=== PATIENT | female | born 1970 | race Caucasian/White ===

== ENCOUNTER → 2016-09-16 | Outpatient (CLI) | payer BC ==
[~2016-09-16] MED LIST: FAMO20TA11 PO; FERR1TAB13 PO; FERR1TAB24 PO; IBUP-1050 PO; LEVO100T PO; LEVO200T PO; LEVOPOW36 PO; SERT-234 PO; ZNTT/150 PO
[2016-09-16 09:26] LABS: BASO % 0.8 %; BASO ABS # 0.09 K/uL (0-0.2); COMPLETE YES; EOS % 3.7 %; HEMATOCRIT 40.7 % (37-47); IG% 0.3 %; LYMPH % 18.8 %; LYMPH ABS # 2.05 K/uL (1.2-3.4); MEAN CELL VOLUME 75.9 fL (80-100); MEAN CORPUSCULAR HEMOGLOBIN 24.8 pg (25-34); MEAN CORPUSCULAR HGB CONC 32.7 g/dl (32-36); MEAN PLATELET VOLUME 11.2 fL (7.4-10.4); NEUT % 69.4 %; PLATELET COUNT 330 K/uL (130-400); RED BLOOD COUNT 5.36 M/uL (4.2-5.4); WHITE BLOOD COUNT 10.91 K/uL (4.8-10.8)
[2016-09-16 09:51] LABS: CHOLESTEROL/HDL RATIO 4.1; FERRITIN 9.4 ng/ml (8.0-388.0); THYROID STIMULATING HORMONE 2.35 uIu/ml (0.300-4.500)
== END | disposition home or self-care (01) ==
LOC: C.LAB1850 08:26
PROVIDERS: ATTEND Internal Medicine Geriatric Medicine
DX: Z00.00 Encounter for general adult medical examination without abnormal findings (principal); D64.9 Anemia, unspecified; E03.9 Hypothyroidism, unspecified

== ENCOUNTER 2017-01-16 08:13 | Emergency (ER) | payer BC ==
[~2017-01-16] VITALS: Ht 172.7 cm; Wt 122.6 kg
[~2017-01-16 08:13] MED LIST changes: -FERR1TAB13 PO; -IBUP-1050 PO; -LEVO100T PO; -LEVO200T PO
[2017-01-16 08:16] VITALS: TEMP 36.8; Ht 172.7 cm; Wt 122.6 kg
[2017-01-16 08:31] VITALS: O2SAT 96
--- NOTE | 2017-01-16 08:32 | EMERGENCY ROOM VISIT NOTE ---
History Report prepared by Oj: Belinda Peo Under the Supervision of: Dr. Sivakumar Musa M.D. First contact with patient: 08:21 Chief Complaint: CARDIAC ASSESSMENT Stated Complaint: CHEST PAINS, COLD SWEATS, NAUSEA, SOB History of Present Illness The patient is a 46 year old female who presents to the Emergency Room with complaints of resolving chest pain that began 5 hours prior to arrival. The patient states that she had an episode of this chest pain late last night and then again this morning waking her up from her sleep. The patient states that the pain has completely resolved now. When she was experiencing chest pain the patient states that she would rate the pain as 6/10 in severity. During the episode of chest pain she did experiencing nausea, diaphoresis and nausea. The patient states that she at first thought the pain was from acid reflux. She has a history of acid reflux and does take daily medication for this. She took TUMS when the pain first began with no relief of her symptoms. The patient notes that she is experiencing neck pain but that she was camping over the weekend and is unsure if the pain is from not sleeping in her bed. The patient notes she has been more stressed lately. She denies hypertension, diabetes, cardiac or pulmonary history, or smoking. Source of History: patient Onset: 5 hours [employer]ICK[employer] Position: chest Symptom Intensity: 6/10 Timing: resolved Associated Symptoms: + diaphoresis, + SOB, + nausea Review of Systems All systems have been listed, reviewed, and are negative other than those previously mentioned. Please see Additional Medical History Sheet. Past Medical & Surgical Medical Problems: (1) Acid reflux Family History Cancer Diabetes mellitus Heart disease Hypertension Social History Smoking Status: Former Smoker Smokeless Tobacco Use: No Marital Status: Housing Status: lives with family Occupation Status: employed Current/Historical Medications Scheduled Ferrous Sulfate (Kp Ferrous Sulfate), 325 MG PO DAILY Levothyroxine Sodium (Synthroid), 200 MCG PO DAILY Ranitidine (Zantac), 150 MG PO DAILY Sertraline (Zoloft), 100 MG PO DAILY Sertraline (Zoloft), 150 MG PO UD Scheduled PRN Ibuprofen (Advil), 600 MG PO UD PRN for Pain Allergies Coded Allergies: No Known Allergies (Verified , 01/16/17) Physical Exam Vital Signs Date Time Temp Pulse Resp B/P (MAP) Pulse Ox O2 Delivery O2 Flow Rate FiO2 01/16/17 10:45 73 18 127/87 97 01/16/17 09:32 72 16 147/113 97 Room Air 01/16/17 08:31 96 Room Air 01/16/17 08:29 98 Room Air 01/16/17 08:28 77 01/16/17 08:16 36.8 79 18 191/109 98 Room Air Physical Exam GENERAL: Patient awake, alert, oriented x 3. Patient follows commands. Patient does not appear toxic. Patient is adequately hydrated and well- nourished. SKIN: No erythema, pallor, cyanosis or rash HEENT: Normal head, pupils equal, reactive to light and accommodation. Oral cavity and posterior pharynx appear normal. Neck: Without adenopathy, no neck vein distention. LUNGS: Clear to auscultation. No wheezes, no rales, no rhonchi. HEART: No murmurs. No gallops. No rubs ABDOMEN: Obese. No masses, no rebound, no hepatomegaly or splenomegaly. EXTREMITIES: No signs of trauma. No pedal or pretibial edema. No calf or thigh tenderness. NEUROLOGIC: Cranial nerves II-XII within normal limits. No gross motor sensory function deficits. Medical Decision & Procedures ER Provider Diagnostic Interpretation: X ray results are stated below per my interpretation and the radiologist's interpretation. CHEST 2 VIEWS ROUTINE CLINICAL HISTORY: CHEST PAIN dyspnea COMPARISON STUDY: No previous studies for comparison. FINDINGS: The bones soft tissues and hemidiaphragms are normal. The cardiomediastinal silhouette is normal. The lungs are clear. The pulmonary vasculature is normal. IMPRESSION: Negative chest. Electronically signed by: Chun Borrero M.D. 01/16/2017 8:53 AM Dictated Date/Time: 01/16/2017 8:53 AM Laboratory Results 01/16/17 08:30 01/16/17 08:30 Test 01/16/17 08:30 01/16/17 10:09 Red Blood Count 5.56 M/uL (4.2-5.4) Mean Corpuscular Volume 80.6 fL (80-100) Mean Corpuscular Hemoglobin 26.1 pg (25-34) Mean Corpuscular Hemoglobin Concent 32.4 g/dl (32-36) RDW Standard Deviation 44.0 fL (36.4-46.3) RDW Coefficient of Variation 14.9 % (11.5-14.5) Mean Platelet Volume 10.4 fL (7.4-10.4) Anion Gap 8.0 mmol/L (3-11) Est Creatinine Clear Calc Drug Dose 101.0 ml/min Estimated GFR () 82.2 Estimated GFR (Non- 70.9 BUN/Creatinine Ratio 12.7 (10-20) Calcium Level 10.0 mg/dl (8.5-10.1) Bedside Troponin I < 0.030 ng/ml (0-0.045) Laboratory results as stated above per my review. ECG Indication: chest pain Rate (beats per minute): 68 Rhythm: normal sinus Findings: no acute ischemic change, no ectopy ED Course 08: Past medical records reviewed. The patient was evaluated in room B2. A complete history and physical examination was performed. 1030: I reevaluated the patient. She is no having no chest pain or shortness of breath. 1036: Upon reevaluation, the patient appeared to have improvement of her symptoms. I discussed today's findings with her. She verbalized agreement of the treatment plan. She was discharged home. Medical Decision Nurses notes reviewed. Medical history sheet reviewed. Differential diagnosis includes but is not limited to: myocardial infarction, chest wall pain, pericarditis, myocarditis, aortic emergencies, pulmonary embolism, congestive heart failure, GI causes, and other significant cardiopulmonary disorders. Medication Reconciliation: I attest that I have personally reviewed the patient' s current medication list. Blood Pressure Screening: Patient was found to have an elevated blood pressure and was referred to their primary doctor for recheck and further treatment. Multiple labs, EKG and imaging were obtained. Please see above. The patient's white count is minimally elevated. The patient has no reason or evidence of a bacterial infection. 2 sets of troponins were not elevated. Chest x-ray reveals no infiltrates. I do not think she has a PE or aortic dissection/ aneurysm. The patient most likely has a GI cause for her symptoms. The patient is currently taking Zantac once a day. We will increase that to twice a day. She is to call her primary physician Tuesday morning for follow-up. Her blood pressure was also elevated and that will require recheck. I am not placing her on an antihypertensive at this time. Impression Primary Impression: Precordial chest pain Scribe Attestation The scribe's documentation has been prepared under my direction and personally reviewed by me in its entirety. I confirm that the note above accurately reflects all work, treatment, procedures, and medical decision making performed by me. Departure Information Dispostion Home / Self-Care Referrals Sreekanth Lynn M.D. (PCP) Forms IMPORTANT VISIT INFORMATION Patient Instructions ED Chest Pain Atypical Unkn Cause, My [facility] Additional Instructions Increase ranitidine/Zantac to 75 mg twice a day. Call Dr. Lynn's office Tuesday morning for follow-up appointment for your chest pain and blood pressure. Return here sooner if you develop any more chest pain.
[2017-01-16 08:41] LABS: HEMATOCRIT 44.8 % (37-47); MEAN CELL VOLUME 80.6 fL (80-100); MEAN CORPUSCULAR HEMOGLOBIN 26.1 pg (25-34); MEAN CORPUSCULAR HGB CONC 32.4 g/dl (32-36); MEAN PLATELET VOLUME 10.4 fL (7.4-10.4); PLATELET COUNT 312 K/uL (130-400); RED BLOOD COUNT 5.56 M/uL (4.2-5.4)
--- NOTE | 2017-01-16 08:55 | DIAGNOSTIC IMAGING REPORT ---
CHEST 2 VIEWS ROUTINE CLINICAL HISTORY: CHEST PAIN dyspnea COMPARISON STUDY: No previous studies for comparison. FINDINGS: The bones soft tissues and hemidiaphragms are normal. The cardiomediastinal silhouette is normal. The lungs are clear. The pulmonary vasculature is normal. IMPRESSION: Negative chest. Electronically signed by: Chun Borrero M.D. 01/16/2017 8:53 AM Dictated Date/Time: 01/16/2017 8:53 AM
[2017-01-16 09:00] LABS: BUN/CREATININE RATIO 12.7 (10-20); CREATININE 0.96 mg/dl (0.60-1.20); POTASSIUM 4.1 mmol/L (3.5-5.1)
[2017-01-16] MEDS ORDERED: IBUP-1050 PO (09:00)
[2017-01-16] MEDS ORDERED: LEVO100T PO (09:00)
[2017-01-16] MEDS ORDERED: LEVO200T PO (09:00)
[2017-01-16] MEDS ORDERED: FERR1TAB13 PO (09:01)
[2017-01-16 10:45] VITALS: BP 127/87; PULSE 73; O2SAT 97
== END 2017-01-16 10:46 | disposition home or self-care (01) ==
LOC: C.EDB 08:14
DX: R07.1 Chest pain on breathing (principal); K21.9 Gastro-esophageal reflux disease without esophagitis; Z87.891 Personal history of nicotine dependence; Z79.899 Other long term (current) drug therapy

== ENCOUNTER → 2017-01-21 | Outpatient (CLI) | payer BC ==
[~2017-01-21] MED LIST changes: +FERR1TAB13 PO; -FERR1TAB24 PO; +IBUP-1050 PO; +LEVO200T PO; -LEVOPOW36 PO
[2017-01-21 17:15] LABS: BASO % 0.5 %; BASO ABS # 0.07 K/uL (0-0.2); COMPLETE YES; EOS % 6.2 %; HEMATOCRIT 42.1 % (37-47); IG% 0.4 %; LYMPH % 19.9 %; LYMPH ABS # 2.84 K/uL (1.2-3.4); MEAN CELL VOLUME 81.7 fL (80-100); MEAN CORPUSCULAR HEMOGLOBIN 26.6 pg (25-34); MEAN CORPUSCULAR HGB CONC 32.5 g/dl (32-36); MEAN PLATELET VOLUME 11.2 fL (7.4-10.4); MONO % 7.5 %; NEUT % 65.5 %; PLATELET COUNT 322 K/uL (130-400); RED BLOOD COUNT 5.15 M/uL (4.2-5.4); WHITE BLOOD COUNT 14.24 K/uL (4.8-10.8)
== END | disposition home or self-care (01) ==
LOC: C.LABBC 13:34
PROVIDERS: ATTEND Physician Assistant Medical
DX: D64.9 Anemia, unspecified (principal); D72.829 Elevated white blood cell count, unspecified

== ENCOUNTER → 2017-01-26 | Outpatient (CLI) | payer BC ==
--- NOTE | 2017-01-26 09:12 | DIAGNOSTIC IMAGING REPORT ---
CHEST 2 VIEWS ROUTINE HISTORY: 46-year-old female presents with acute chest pain and shortness of breath. Leukocytosis. COMPARISON: Chest radiograph 01/16/2017. TECHNIQUE: Frontal and lateral views of the chest. FINDINGS: Cardiomediastinal and hilar silhouettes are within normal limits. There is no pneumothorax, pleural effusion or focal airspace consolidation. The bones are grossly intact. Metallic anchors are present within the right humeral head from prior rotator cuff repair. IMPRESSION: No acute cardiopulmonary process. Electronically signed by: Selwyn Isaac 01/26/2017 9:11 AM Dictated Date/Time: 01/26/2017 9:09 AM
[2017-01-26 10:54] LABS: BASO % 0.6 %; BASO ABS # 0.07 K/uL (0-0.2); COMPLETE YES; EOS % 6.9 %; HEMATOCRIT 42.8 % (37-47); IG% 0.4 %; LYMPH ABS # 1.94 K/uL (1.2-3.4); MEAN CELL VOLUME 81.8 fL (80-100); MEAN CORPUSCULAR HEMOGLOBIN 26.8 pg (25-34); MEAN CORPUSCULAR HGB CONC 32.7 g/dl (32-36); MEAN PLATELET VOLUME 11.2 fL (7.4-10.4); MONO % 7.3 %; NEUT % 67.8 %; PLATELET COUNT 296 K/uL (130-400); RED BLOOD COUNT 5.23 M/uL (4.2-5.4); WHITE BLOOD COUNT 11.38 K/uL (4.8-10.8)
[2017-01-26 10:58] LABS: URINE APPEARANCE CLEAR (CLEAR); URINE BILIRUBIN NEG (NEG); URINE COLOR YELLOW; URINE EPITHELIAL CELL AUTO >30 /lpf (0-5); URINE NITRITE NEG (NEG); URINE SPECIFIC GRAVITY 1.018 (1.000-1.030); UROBILINOGEN NEG (NEG)
[2017-01-26 11:00] LABS: ALT/SGPT 34 U/L (12-78); BLOOD UREA NITROGEN 10 mg/dl (7-18); BUN/CREATININE RATIO 10.4 (10-20); CARBON DIOXIDE 25 mmol/L (21-32); CHLORIDE 107 mmol/L (98-107); CREATININE 0.97 mg/dl (0.60-1.20); GLUCOSE 91 mg/dl (70-99); POTASSIUM 3.9 mmol/L (3.5-5.1); SODIUM 139 mmol/L (136-145)
[2017-01-26 11:01] LABS: MANUAL MICROSCOPIC REQUIRED? NO; REVIEW REQ? NO
[2017-01-26 11:03] LABS: ALKALINE PHOSPHATASE 73 U/L (45-117); AST/SGOT 19 U/L (15-37)
[2017-01-26 11:29] LABS: LYME DISEASE AB IGG NEG (NEG)
[2017-01-26 11:48] LABS: LYME DISEASE AB IGM EQUIVOCAL (NEG)
[2017-01-28 07:06] LABS: 18KDIGG BAND NONREACTIVE (NONREACTIVE); 23KDIGG BAND NONREACTIVE (NONREACTIVE); 23KDIGM BAND REACTIVE (NONREACTIVE); 28KDIGG BAND NONREACTIVE (NONREACTIVE); 30KDIGG BAND NONREACTIVE (NONREACTIVE); 39KDIGG BAND NONREACTIVE (NONREACTIVE); 39KDIGM BAND NONREACTIVE (NONREACTIVE); 41KDIGG BAND NONREACTIVE (NONREACTIVE); 41KDIGM BAND REACTIVE (NONREACTIVE); 45KDIGG BAND NONREACTIVE (NONREACTIVE); 58KDIGG BAND NONREACTIVE (NONREACTIVE); 66KDIGG BAND NONREACTIVE (NONREACTIVE); 93KDIGG BAND NONREACTIVE (NONREACTIVE)
== END | disposition home or self-care (01) ==
LOC: C.RADBC 08:33
PROVIDERS: ATTEND Physician Assistant Medical
DX: R07.9 Chest pain, unspecified (principal); D72.829 Elevated white blood cell count, unspecified

== ENCOUNTER → 2017-01-28 | Outpatient (CLI) | payer BC | END | disposition home or self-care (01) | LOC: C.LABBC 12:26 | PROVIDERS: ATTEND Physician Assistant Medical | DX: R78.81 Bacteremia (principal); A69.20 Lyme disease, unspecified ==

== ENCOUNTER 2017-02-02 12:42 | Emergency (ER) | payer BC ==
[~2017-02-02] VITALS: Ht 172.7 cm; Wt 124.4 kg
[~2017-02-02 12:42] MED LIST changes: -FAMO20TA11 PO
[2017-02-02 12:47] VITALS: TEMP 36.5; Ht 172.7 cm; Wt 124.4 kg
[2017-02-02] MEDS ORDERED: SODIUM CHLORIDE 0.9% 1000ML 500 ML IV STA (13:08)
[2017-02-02] MEDS ORDERED: FAMO20TA11 PO (13:10)
[2017-02-02 14:12] LABS: BASO % 0.3 %; BASO ABS # 0.04 K/uL (0-0.2); COMPLETE YES; EOS % 1.5 %; HEMATOCRIT 42.8 % (37-47); IG% 0.4 %; LYMPH % 8.4 %; LYMPH ABS # 1.17 K/uL (1.2-3.4); MEAN CELL VOLUME 80.8 fL (80-100); MEAN CORPUSCULAR HEMOGLOBIN 26.6 pg (25-34); MEAN CORPUSCULAR HGB CONC 32.9 g/dl (32-36); MEAN PLATELET VOLUME 10.8 fL (7.4-10.4); MONO % 4.5 %; NEUT % 84.9 %; PLATELET COUNT 268 K/uL (130-400); WHITE BLOOD COUNT 13.94 K/uL (4.8-10.8)
[2017-02-02 14:38] LABS: ALT/SGPT 34 U/L (12-78); BLOOD UREA NITROGEN 13 mg/dl (7-18); BUN/CREATININE RATIO 14.1 (10-20); CALCIUM 8.9 mg/dl (8.5-10.1); CARBON DIOXIDE 25 mmol/L (21-32); CHLORIDE 104 mmol/L (98-107); CREATININE 0.95 mg/dl (0.60-1.20); GLUCOSE 132 mg/dl (70-99); POTASSIUM 3.6 mmol/L (3.5-5.1); SODIUM 137 mmol/L (136-145)
[2017-02-02 14:48] LABS: ALKALINE PHOSPHATASE 80 U/L (45-117); AST/SGOT 18 U/L (15-37)
[2017-02-02 14:52] LABS: URINE APPEARANCE CLEAR (CLEAR); URINE BILIRUBIN NEG (NEG); URINE COLOR YELLOW; URINE EPITHELIAL CELL AUTO 20-30 /lpf (0-5); URINE NITRITE NEG (NEG); URINE SPECIFIC GRAVITY 1.019 (1.000-1.030); UROBILINOGEN NEG (NEG)
--- NOTE | 2017-02-02 14:53 | EMERGENCY ROOM VISIT NOTE ---
History Report prepared by Oj: Ernie Richards Under the Supervision of: Dr. Todd Sullivan M.D. First contact with patient: 13:04 Chief Complaint: SYNCOPE (NEAR SYNCOPE) Stated Complaint: CLAMY COLD SWEATS Nursing Triage Summary: triage note: pt reports she tested + for lymes disease. pt reports earlier today she felt sweaty and weak which lasted for approx 1 hour. pt denies any loc. History of Present Illness The patient is a 46 year old female who presents to the Emergency Room with complaints of resolved lightheadedness occurring about an hour and a half ago. The patient was standing up at work where she started feeling hot and clammy, diaphoretic, lightheaded, and nauseated. She denies any vomiting. Her symptoms lasted about 1 hours and resolved about half an hour ago. She felt much better when she got to the car with air conditioning. As per , the patient's workplace building was very hot today. She ate food and drank fluids as normal today. The patient has been at baseline over the past few days. The patient reports hot flashes occurring intermittently. She was diagnosed with Lyme's disease by her PCP last week. The patient has been prescribed Doxycycline for 3 weeks by her PCP. She has been taking her thyroid medication for the past 20 years but did not have any recent changes in doses. She does not have a history of hypertension. She denies loss of consciousness, cough, cold, congestion, chest pain, shortness of breath, urinary symptoms, diarrhea, or any other complaints. Source of History: patient Onset: about an hour and a half ago Position: other (global) Quality: other (lightheadedness) Timing: resolved Associated Symptoms: + diaphoresis, + nausea, No LOC, No cough, No chest pain, No SOB, No vomiting, No diarrhea, No urinary symptoms Review of Systems See HPI for pertinent positives & negatives. A total of 10 systems reviewed and were otherwise negative. Past Medical & Surgical Medical Problems: (1) Acid reflux Family History Cancer Diabetes mellitus Heart disease Hypertension Social History Smoking Status: Never Smoker Marital Status: Housing Status: lives with family Occupation Status: employed Current/Historical Medications Scheduled Famotidine (Pepcid), 40 MG PO DAILY Ferrous Sulfate (Kp Ferrous Sulfate), 325 MG PO DAILY Levothyroxine Sodium (Synthroid), 200 MCG PO DAILY Sertraline (Zoloft), 100 MG PO DAILY Sertraline (Zoloft), 150 MG PO UD Scheduled PRN Ibuprofen (Advil), 600 MG PO UD PRN for Pain Allergies Coded Allergies: No Known Allergies (Verified , 02/02/17) Physical Exam Vital Signs Date Time Temp Pulse Resp B/P (MAP) Pulse Ox O2 Delivery O2 Flow Rate FiO2 02/02/17 15:30 75 15 132/77 100 02/02/17 14:16 72 124/78 Room Air 02/02/17 14:01 73 02/02/17 12:56 70 142/88 72 152/111 75 154/109 02/02/17 12:47 36.5 69 18 141/101 100 Room Air Physical Exam GENERAL: Patient is in no acute distress. HEENT: No acute trauma, normocephalic atraumatic, mucous membranes moist, no nasal congestion, no scleral icterus. NECK: No stridor, no adenopathy, no meningismus, trachea is midline. LUNGS: Clear to auscultation bilaterally, no wheeze, no rhonchi, breath sounds equal. HEART: Without murmurs gallops or rubs, regular rate and rhythm. ABDOMEN: Soft, nontender, bowel sounds positive, no hernias, no peritonitis. EXTREMITIES: No cyanosis or edema, full range of motion of all the joints without pain or difficulty, no signs for acute trauma. NEUROLOGIC: Oriented x 3, no acute motor or sensory deficits, no focal weakness. SKIN: No rash, no jaundice, no diaphoresis. Medical Decision & Procedures ER Provider Diagnostic Interpretation: The patient's orthostatic vital signs were negative. Laboratory Results 02/02/17 13:40 Red Blood Count 5.30, Mean Corpuscular Volume 80.8, Mean Corpuscular Hemoglobin 26.6, Mean Corpuscular Hemoglobin Concent 32.9, Mean Platelet Volume 10.8, Neutrophils (%) (Auto) 84.9, Lymphocytes (%) (Auto) 8.4, Monocytes (%) (Auto) 4.5, Eosinophils (%) (Auto) 1.5, Basophils (%) (Auto) 0.3, Neutrophils # (Auto) 11.83, Lymphocytes # (Auto) 1.17, Monocytes # (Auto) 0.63, Eosinophils # (Auto) 0.21, Basophils # (Auto) 0.04 02/02/17 13:40 Test 02/02/17 13:40 White Blood Count 13.94 K/uL (4.8-10.8) Red Blood Count 5.30 M/uL (4.2-5.4) Hemoglobin 14.1 g/dL (12.0-16.0) Hematocrit 42.8 % (37-47) Mean Corpuscular Volume 80.8 fL (80-100) Mean Corpuscular Hemoglobin 26.6 pg (25-34) Mean Corpuscular Hemoglobin Concent 32.9 g/dl (32-36) Platelet Count 268 K/uL (130-400) Mean Platelet Volume 10.8 fL (7.4-10.4) Neutrophils (%) (Auto) 84.9 % Lymphocytes (%) (Auto) 8.4 % Monocytes (%) (Auto) 4.5 % Eosinophils (%) (Auto) 1.5 % Basophils (%) (Auto) 0.3 % Neutrophils # (Auto) 11.83 K/uL (1.4-6.5) Lymphocytes # (Auto) 1.17 K/uL (1.2-3.4) Monocytes # (Auto) 0.63 K/uL (0.11-0.59) Eosinophils # (Auto) 0.21 K/uL (0-0.5) Basophils # (Auto) 0.04 K/uL (0-0.2) RDW Standard Deviation 42.5 fL (36.4-46.3) RDW Coefficient of Variation 14.5 % (11.5-14.5) Immature Granulocyte % (Auto) 0.4 % Immature Granulocyte # (Auto) 0.06 K/uL (0.00-0.02) Urine Color YELLOW Urine Appearance CLEAR (CLEAR) Urine pH 5.0 (4.5-7.5) Urine Specific [place] 1.019 (1.000-1.030) Urine Protein NEG (NEG) Urine Glucose (UA) NEG (NEG) Urine Ketones NEG (NEG) Urine Occult Blood TRACE (NEG) Urine Nitrite NEG (NEG) Urine Bilirubin NEG (NEG) Urine Urobilinogen NEG (NEG) Urine Leukocyte Esterase NEG (NEG) Urine WBC (Auto) 0 /hpf (0-5) Urine RBC (Auto) 0-4 /hpf (0-4) Urine Hyaline Casts (Auto) 0 /lpf (0-5) Urine Epithelial Cells (Auto) 20-30 /lpf (0-5) Urine Bacteria (Auto) NEG (NEG) Anion Gap 8.0 mmol/L (3-11) Est Creatinine Clear Calc Drug Dose 102.9 ml/min Estimated GFR () 83.3 Estimated GFR (Non- 71.8 BUN/Creatinine Ratio 14.1 (10-20) Calcium Level 8.9 mg/dl (8.5-10.1) Total Bilirubin 0.2 mg/dl (0.2-1) Aspartate Amino Transf (AST/SGOT) 18 U/L (15-37) Alanine Aminotransferase (ALT/SGPT) 34 U/L (12-78) Alkaline Phosphatase 80 U/L (45-117) Troponin I < 0.015 ng/ml (0-0.045) Total Protein 8.1 gm/dl (6.4-8.2) Albumin 4.0 gm/dl (3.4-5.0) Globulin 4.1 gm/dl (2.5-4.0) Albumin/Globulin Ratio 1.0 (0.9-2) Thyroid Stimulating Hormone (TSH) 3.530 uIu/ml (0.300-4.500) Free Thyroxine 1.28 ng/dl (0.80-1.60) Laboratory results reviewed by me. Medications Administered Medications (Trade) Dose Ordered Sig/Cleo Route Start Time Stop Time Status Last Admin Dose Admin Sodium Chloride 500 ml @ 999 mls/hr Q31M STAT IV 02/02/17 13:08 02/02/17 13:38 DC 02/02/17 13:55 999 MLS/HR ECG Indication: syncope (near) Rate (beats per minute): 72 Rhythm: normal sinus Findings: no acute ischemic change, no ectopy, other (LVH) ED Course 1304: The patient was evaluated in room C05. A complete history and physical exam was performed. 1308: Sodium Chloride 500 ml @ 999 ml/hr IV 1514: Reevaluated the patient. Discussed results and discharge instructions: She verbalized understanding and agreement. The patient is ready for discharge. Medical Decision Differential diagnosis includes but is not limited to dysrhythmia, anemia, electrolyte imbalance, hormonal change, lyme disease, bacteremia, DE, UTI. There is a mild leukocytosis which could be consistent with infection or with the stress of her situation. No anemia. No significant electrolyte abnormality , kidney failure or hepatitis. Urinalysis does not show infection. EKG shows a normal sinus rhythm with LVH. Cardiac enzyme testing times one is not consistent with acute cardiac injury. Orthostatic vital signs were negative. 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 She is doing well, she has been asymptomatic. I did order blood cultures, the results are pending of course. The cultures were done because of the questionable positive blood culture versus contaminant from a few days ago. The patient is being treated with doxycycline for Lyme disease. Her presentation today could have been from the Lyme disease itself. She has done well and I do think can be discharged to continue the doxycycline. If worsening , she can return. We will call with any positive blood culture results. Impression Primary Impression: Near syncope Additional Impressions: Diaphoresis Lyme disease Scribe Attestation The scribe's documentation has been prepared under my direction and personally reviewed by me in its entirety. I confirm that the note above accurately reflects all work, treatment, procedures, and medical decision making performed by me. Departure Information Dispostion Home / Self-Care Referrals Sreekanth Lynn M.D. (PCP) Forms HOME CARE DOCUMENTATION FORM, IMPORTANT VISIT INFORMATION Patient Instructions My [facility] Additional Instructions stay well hydrated continue the doxycycline see your doctor for a recheck this week return for fever or worsening symptoms we will call with any positive blood cultures Problem Qualifiers
[2017-02-02 15:05] LABS: MANUAL MICROSCOPIC REQUIRED? NO; REVIEW REQ? NO
[2017-02-02 15:30] VITALS: BP 132/77; PULSE 75; O2SAT 100
== END 2017-02-02 15:30 | disposition home or self-care (01) ==
LOC: C.EDB 12:43 → C.EDC 15:30
DX: R55 Syncope and collapse (principal); Z82.49 Family history of ischemic heart disease and other diseases of the circulatory system; Z79.899 Other long term (current) drug therapy; R23.1 Pallor; R61 Generalized hyperhidrosis; A69.20 Lyme disease, unspecified

== ENCOUNTER → 2017-07-08 | Outpatient (CLI) | payer BC ==
[~2017-07-08] MED LIST changes: +FAMO20TA11 PO; -ZNTT/150 PO
--- NOTE | 2017-07-11 07:59 | MAMMOGRAPHY REPORT ---
BILATERAL DIGITAL SCREENING MAMMOGRAM TOMOSYNTHESIS WITH CAD: 07/08/2017 CLINICAL HISTORY: Routine screening. Patient has no complaints. TECHNIQUE: Breast tomosynthesis in addition to standard 2D mammography was performed. Current study was also evaluated with a Computer Aided Detection (CAD) system. COMPARISON: Comparison is made to exams dated: 11/08/2014 mammogram, 11/07/2013 mammogram, 11/06/2012 m ammogram, 06/02/2010 mammogram - [facility], and 11/12/2008. BREAST COMPOSITION: The tissue of both breasts is almost entirely fatty. FINDINGS: No suspicious masses, calcifications, or areas of architectural distortion are noted in ei ther breast. There has been no significant interval change compared to prior exams. IMPRESSION: ACR BI-RADS CATEGORY 1: NEGATIVE There is no mammographic evidence of malignancy. A 1 year screening mammogram is recommended. The pa tient will receive written notification of the results. Approximately 10% of breast cancers are not detected with mammography. A negative mammographic report should not delay biopsy if a clinically suggestive mass is present. Gissel Mckenzie M.D. ah/:07/08/2017 15:27:47 Mail Weigher: Susanna JOEL(R)(M), [facility] letter sent: Normal 1/2 BI-RADS Code: ACR BI-RADS Category 1: Negative
== END | disposition home or self-care (01) ==
LOC: C.MAMM 14:11
PROVIDERS: ATTEND Internal Medicine
DX: Z12.31 Encounter for screening mammogram for malignant neoplasm of breast (principal)

== ENCOUNTER → 2017-08-26 | Outpatient (CLI) | payer OTHER ==
--- NOTE | 2017-08-26 08:49 | DIAGNOSTIC IMAGING REPORT ---
GI SERIES W/AIR ROUTINE CLINICAL HISTORY: K21.9 Acid reflux COMPARISON STUDY: FLUOROSCOPY TIME: 2.5 minutes. NUMBER OF FLUOROSCOPIC IMAGES: 23 FINDINGS: The patient swallowed effervescent granules and barium without difficulty. No esophageal masses or ulcerations are visualized. No gastric masses or ulcerations are visualized. The duodenal bulb appeared normal. The ligament of Treitz is located in the normal anatomical position. IMPRESSION: Normal study Electronically signed by: Yoshi Wallace M.D. 08/26/2017 8:48 AM Dictated Date/Time: 08/26/2017 8:46 AM
== END | disposition home or self-care (01) ==
LOC: C.RAD 08:17
PROVIDERS: ATTEND Physician Assistant Medical
DX: K21.9 Gastro-esophageal reflux disease without esophagitis (principal)

== ENCOUNTER → 2017-11-25 | Outpatient (CLI) | payer OTHER ==
[2017-11-25 09:35] LABS: HEMATOCRIT 36.1 % (37-47); MEAN CELL VOLUME 67.2 fL (80-100); MEAN CORPUSCULAR HEMOGLOBIN 20.5 pg (25-34); MEAN CORPUSCULAR HGB CONC 30.5 g/dl (32-36); MEAN PLATELET VOLUME 10.1 fL (7.4-10.4); PLATELET COUNT 343 K/uL (130-400); RED CELL DISTRIBUTION WIDTH SD 41.2 fL (36.4-46.3); WHITE BLOOD COUNT 9.54 K/uL (4.8-10.8)
[2017-11-25 09:48] LABS: ALT/SGPT 35 U/L (12-78); AST/SGOT 18 U/L (15-37); BLOOD UREA NITROGEN 14 mg/dl (7-18); CARBON DIOXIDE 25 mmol/L (21-32); CREATININE 0.88 mg/dl (0.60-1.20); GLUCOSE 105 mg/dl (70-99); POTASSIUM 4.1 mmol/L (3.5-5.1); SODIUM 137 mmol/L (136-145)
[2017-11-25 09:58] LABS: ALKALINE PHOSPHATASE 78 U/L (45-117); TOTAL PROTEIN 7.9 gm/dl (6.4-8.2)
== END | disposition home or self-care (01) ==
LOC: C.LAB1850 08:23
PROVIDERS: ATTEND Physician Assistant Medical
DX: E03.9 Hypothyroidism, unspecified (principal); D64.9 Anemia, unspecified; Z00.00 Encounter for general adult medical examination without abnormal findings

== ENCOUNTER 2020-05-23 05:46 | Observation (INO) ==
--- NOTE | 2020-05-02 14:21 | PAT Medication Instructions ---
Medication Instructions Date of Service May 02, 2020 Home Medications Medication Instructions Recorded pantoprazole 40 mg tablet,delayed 40 mg PO QPM #90 tab 02/07/20 release levothyroxine 200 mcg PO QAM pantoprazole 40 mg tablet,delayed release 40 mg PO QPM sertraline See Rx Instructions .ROUTE .COMPLEX Continue as directed levothyroxine 200 mcg PO QAM pantoprazole 40 mg tablet,delayed release 40 mg PO QPM sertraline See Rx Instructions .ROUTE .COMPLEX Other Notes If you have any questions please call us at [phone] or [phone] or [phone] or [phone]
--- NOTE | 2020-05-07 09:07 | Anesthesiology Consultation ---
Date of Service May 07, 2020 Assessment & Plan (1) Encounter for pre-operative examination: - Per assessment on 05/07: Travel screen negative (did attend a wedding 04/19 with 75 people/no masks. PAT visit was rescheduled due to proximity of wedding to [facility]). DOS 1+ month after wedding event. Has had no further large gatherings and no travel planned prior to surgery. No known COVID-19 positive contacts or current COVID-19 related symptoms. Surgeon arranging preop COVID testing (scheduled 05/19). Awaiting results. - Check test AM DOS Chart Review Chart Review: Acceptable Risk for Surgery and Patient seen in Pre Admission Testing Teaching & Discussion Pre-Anesthesia Teaching/Discussion Notes: Instructed NPO after midnight before surgery,except medications with 15 cc of water. Medication instructions provided according to the PAT guidelines. History Surgery Operation Date: 05/23/20 07:30 Proposed Procedures p Robotic Total Laparoscopic Hysterectomy - Cookie Patterson MD Height/Weight Height: 5 ft 8 in Weight: 126.7 kg Allergies Allergy/AdvReac Type Severity Reaction Status Date / Time No Known Allergies Allergy Verified 04/30/20 10:43 Medications Home Medications Medication Instructions Recorded Confirmed Last Taken levothyroxine 200 mcg PO QAM 01/16/20 04/30/20 01/22/20 18:00 pantoprazole 40 mg tablet,delayed 40 mg PO QPM #90 tab 02/07/20 04/30/20 Unknown release sertraline See Rx Instructions .ROUTE .COMPLEX 04/24/20 04/30/20 Unknown Past Medical History Medical History Anxiety GERD (gastroesophageal reflux disease) History of colon polyps Hypothyroidism Iron deficiency anemia s/p iron infusions Menorrhagia Mild sleep apnea does not tolerate CPAP Morbid obesity Osteoarthritis Exercise / Class Metabolic Activity III < 4 Walking/Shop/Light housework Past Family History Family History Father Diabetes Heart disease Myocardial infarction Stroke syndrome Heart transplant recipient Hypertension Stroke Mother Depression DVT of leg (deep venous thrombosis) Hypertension Grandmother (Maternal) Diabetes Other No family history of adverse response to anesthesia Denies family history of Ovarian cancer Prostate cancer Breast cancer Colorectal cancer Past Surgical History Surgical History H/O colonoscopy with polypectomy (10/2013) History of esophagogastroduodenoscopy (EGD) (10/2014) History of shoulder surgery Right History of tooth extraction wisdom teeth, impacted tooth Past Anesthesia History No Hx of Anesthesia Complications (except PONV) and No Family Hx of Anesthesia Complications History of PONV History of PONV (with shoulder surgery ()) and Hx of Motion Sickness (occasional) Social History Smoking Status: Former smoker Do You Dip or Chew Tobacco: No Smoking End Date: Quit 15 years ago Hx Alcohol Use: Yes Alcohol type: beer alcohol intake frequency: a few times a week Hx Substance Use: No substance use type: does not use Review of Systems Patient denies chest pain, shortness of breath, cough, wheezing, palpitations. Physical Exam Vital Signs VITALS BP 170/81 (repeat BP 138/86) P 77 TEMP 97.5 SP02 96%RA RESP 16 PHYSICAL Full neck and c-spine range of motion. Full TMJ range of motion. TMD 4 finger breaths Mallampati Score 2 Dentition: upper right front tooth repaired, teeth intact Lungs: clear throughout to auscultation Cardiac: regular rate and rhythm, no murmurs noted Spine: normal Extremities: no edema Testing Laboratory Results 05/07/20 09:39 05/07/20 09:39 Blood Type A Positive 05/07/20 09:39 Antibody Screen NEGATIVE 05/07/20 09:39 Electrocardiogram Date: 05/07/20 Findings: + NSR @ (70)
[2020-05-07 09:55] LABS: Basophils # (auto) 0.06 K/uL (0-0.2); Basophils % (auto) 0.7 %; Eosinophils # (auto) 0.47 K/uL (0-0.5); Eosinophils % (auto) 5.8 %; Hematocrit (blood only) 43.3 % (37-47); Hemoglobin 13.7 g/dL (12.0-16.0); Immature Granulocytes # (auto) 0.02 K/uL (0.00-0.02); Immature Granulocytes % (auto) 0.2 %; Lymphocytes # (auto) 1.42 K/uL (1.2-3.4); Lymphocytes % (auto) 17.6 %; Mean Corpuscular Hemoglobin 25.1 pg (25-34); Mean Corpuscular Hgb Conc 31.6 g/dL (32-36); Mean Corpuscular Volume 79.3 fL (80-100); Mean Platelet Volume 11.7 fL (7.4-10.4); Monocytes # (auto) 0.47 K/uL (0.11-0.59); Monocytes % (auto) 5.8 %; Neutrophils # (auto) 5.62 K/uL (1.4-6.5); Neutrophils % (auto) 69.9 %; Platelet Count 277 K/uL (130-400); RDW Coefficient of Variation 15.2 % (11.5-14.5); RDW Standard Deviation 44.4 fL (36.4-46.3); Red Blood Count 5.46 M/uL (4.2-5.4); White Blood Count 8.06 K/uL (4.8-10.8)
[2020-05-07 10:44] LABS: BUN Creatinine Ratio 18.1 (10-20); Calcium 9.2 mg/dl (8.5-10.1); Creatinine Clr Calc Pharmacy 102.8 ml/min; Est GFR (African American) 84.1; Est GFR (Non-African American) 72.6; Potassium 4.4 mmol/L (3.5-5.1)
--- NOTE | 2020-05-07 13:43 | Electrocardiogram Report ---
Test Reason : Blood Pressure : / mmHG Vent. Rate : 070 BPM Atrial Rate : 070 BPM P-R Int : 168 ms QRS Dur : 086 ms QT Int : 384 ms P-R-T Axes : 053 039 050 degrees QTc Int : 414 ms Normal sinus rhythm Normal ECG When compared with ECG of 02-FEB-2017 14:00, Borderline criteria for Inferior infarct are no longer Present Confirmed by Dillan Mcmullen ([id number]) on 05/07/2020 1:42:38 PM Referred By: Cookie Patterson Confirmed By:Dillan Mcmullen
[2020-05-23] MEDS ORDERED: LR 15ML/HR IV SCH (06:00)
[2020-05-23] MEDS ORDERED: LACTATED RINGER'S 1,000 ML IV SCH ×2 (06:00→07:00)
[2020-05-23] MEDS ORDERED: PROMETHAZINE HCL 25 MG in SODIUM CHLORIDE 0.9% 50 ML IV PRN (06:58)
[2020-05-23] MEDS ORDERED: ONDANSETRON INJ 2 MG/ML 2 ML VIAL IV PRN ×2 (06:58→07:53)
[2020-05-23] MEDS ORDERED: SIMETHICONE 80 MG CHEW PO PRN (06:58)
[2020-05-23] MEDS ORDERED: MEPERIDINE HCL 25 MG/ML CARP/VIAL IV PRN (06:58)
[2020-05-23] MEDS ORDERED: MAGNESIUM HYDROXIDE SUSP 30 ML UDC PO PRN (06:58)
[2020-05-23] MEDS ORDERED: KETOROLAC 30 MG/ML VIAL IV PRN (06:58)
[2020-05-23] MEDS ORDERED: IBUPROFEN 600 MG TAB PO PRN (06:58)
[2020-05-23] MEDS ORDERED: bisacodyL 10 MG SUPP PR PRN (06:58)
[2020-05-23] MEDS ORDERED: ACETAMINOPHEN 325 MG TAB PO PRN (06:58)
[2020-05-23] MEDS ORDERED: MEPERIDINE HCL 50 MG/ML CARP IV PRN (06:58)
[2020-05-23] MEDS ORDERED: PROMETHAZINE HCL 12.5 MG in SODIUM CHLORIDE 0.9% 50 ML IV PRN (06:58)
[2020-05-23] MEDS ORDERED: oxyCODONE/ACETAMINOPHEN 5mg/325mg TAB PO PRN ×2 (06:58)
--- NOTE | 2020-05-23 06:58 | History & Physical Bridge Note ---
Date of Service May 23, 2020 History & Physical Bridge Note I have examined the patient, reviewed the History & Physical and in the interval since the performance of the History & Physical I have noted the following changes of clinical significance: no changes noted
[2020-05-23] MEDS ORDERED: FAMOTIDINE/PF 20 MG/2 ML VIAL IV ONE (07:04)
[2020-05-23] MEDS ORDERED: SUCCINYLCHOLINE CHLORIDE 20 MG/ML 10 ML VIAL IV ONE (07:07)
[2020-05-23] MEDS ORDERED: GLYCOPYRROLATE 0.2 MG/ML VIAL ONE (07:07)
[2020-05-23] MEDS ORDERED: DEXAMETHASONE SOD INJ 4 MG/ML VIAL ONE ×2 (07:07→08:06)
[2020-05-23] MEDS ORDERED: PROPOFOL IV EMULSION 10 MG/ML 20 ML VIAL IV ONE (07:07)
[2020-05-23] MEDS ORDERED: fentaNYL citrate 100 MCG/2 ML VIAL ONE (07:07)
[2020-05-23] MEDS ORDERED: ONDANSETRON INJ 2 MG/ML 2 ML VIAL ONE ×2 (07:07→08:45)
[2020-05-23] MEDS ORDERED: NEOSTIGMINE METHYLSULFATE 5 MG/5 ML SYR ONE (07:07)
[2020-05-23] MEDS ORDERED: LIDOCAINE HCL 2% 2 ML VIAL/AMP(20MG/ML) INFIL ONE (07:07)
[2020-05-23] MEDS ORDERED: PHENYLEPHRINE HCL 10 MG/ML VIAL ONE (07:07)
[2020-05-23] MEDS ORDERED: ePHEDrine sulfate 50 MG/ML AMP ONE (07:07)
[2020-05-23] MEDS ORDERED: MIDAZOLAM HCL 1 MG/ML 2ML VIAL ONE (07:07)
[2020-05-23] MEDS ORDERED: SCOPOLAMINE 1.5 MG TDSY TD ONE (07:18)
[2020-05-23] MEDS ORDERED: ePHEDrine sulfate 50 MG/ML AMP IV PRN (07:53)
[2020-05-23] MEDS ORDERED: ATROPINE SULFATE 0.1 MG/ML 10ML SYR IV PRN (07:53)
[2020-05-23] MEDS ORDERED: HYDROmorphone INJ 2 MG/ML SYR/VIAL IV PRN (07:53)
[2020-05-23] MEDS ORDERED: fentaNYL citrate 100 MCG/2 ML VIAL IV PRN (07:53)
[2020-05-23] MEDS ORDERED: PROMETHAZINE HCL 6.25 MG in SODIUM CHLORIDE 0.9% 50 ML IV PRN (07:53)
[2020-05-23] MEDS ORDERED: HYDROmorphone INJ 2 MG/ML SYR/VIAL ONE (08:06)
[2020-05-23] MEDS ORDERED: diphenhydrAMINE 50 MG/ML VIAL ONE (08:16)
[2020-05-23] MEDS ORDERED: ROCURONIUM BROMIDE 10 MG/ML 5 ML VIAL IV ONE (08:17)
[2020-05-23] MEDS ORDERED: METHYLENE BLUE 0.5% 10 ML VIAL ONE (08:33)
[2020-05-23] MEDS ORDERED: DEXTROSE 5% IV STA (08:44)
[2020-05-23] MEDS ORDERED: METHYLENE BLUE IV STA (08:44)
--- NOTE | 2020-05-23 09:09 | Operative Report ---
PG Post Operative Report Pre & Post Diagnosis Operation Date: 05/23/20 07:30 Pre-Op Diagnosis: Menorrhagia, Suspected Adenomyosis Post-Op Diagnosis: Menorrhagia, Suspected Adenomyosis I identified the patient and participated in the time-out.: Yes Procedure Operation Date: 05/23/20 07:30 Actual Procedures p Robotic Total Laparoscopic Hysterectomy, Bilateral Salpingectomy, cystoscopy - Cookie Patterson MD Surgeon Cookie Patterson MD Senior Compensation Analyst None Estimated Blood Loss 25 Findings Consistent with Post-Op Diagnosis Specimens Uterus, Cervix and Tubes en bloc Anesthesia Type General Complications none Disposition Accompanied Patient To Recovery: Yes Disposition: Recovery Room Description of Procedure The patient was brought to the operating room and placed on the table in dorsal lithotomy position with yellofin stirrups, prepped and draped in standard sterile fashion, and a hard time out was taken prior to proceeding. The bladder was emptied via placement of wang catheter. A [employer] uterine manipulator was placed in the usual manner. Attention was then turned to the abdomen where optical entry was made at the umbilicus without complication. The abdomen was insufflated and the patient was placed in steep Trendelenburg. Under direct visualization, right and left lower quadrant ports were placed without complication. Survey of the abdomen revealed normal-appearing uterus, tubes and ovaries. The robot was then docked and surgery proceeded with the surgeon at the console. The ureter was identified on each side and traced along its course into the pelvis. Each fallopian tube in turn was elevated, dissected off the mesosalpinx and left attached to the uterine cornu. Each utero-ovarian ligament was ligated and then divided. Each round ligament was ligated and then divided. The anterior leaflets of the broad ligament were dissected to create a bladder flap which was gently mobilized downward below the colpotomy cup ridge. Each uterine artery was skeletonized, ligated, and then divided. Circumferential colpotomy was then completed following the colpotomy cup guide. The cervix, uterus and bilateral tubes were then retrieved en bloc via the vagina. The vaginal cuff was then closed using V-Chuck suture in the typical running non- locked fashion. The needle was retrieved through a trocar, and a final survey revealed good hemostasis at all working sites. After administration of IV Methylene Blue dye, cystoscopy was then utilized to examine the bladder dome which was free of suture or injury. The ureteral orifices were observed until a good strong jet of blue stained urine was seen from each. The bladder was then drained. The robot was then undocked, and abdominal trocar sites were closed using a UR6 at the umbilical fascia and 4-0 monocryl at each of the skin incisions. Due to ongoing ooze from the LLQ site, a UR6 stitch was also placed in the subcutaneous fat to stop the bleeding. A dermabond dressing was applied to each site. A final vaginal exam ensured no materials were present in the vagina and the cuff was intact. The patient was then transferred in stable condition to the recovery room. I attest to the content of the Intraoperative Record and any orders documented therein. Any exceptions are noted below.
--- NOTE | 2020-05-23 10:23 | Anesthesiology Progress Note ---
Date of Service May 23, 2020 Anesthesia Post Procedure Vital Signs Vital Signs: Temp Pulse Pulse Resp BP BP Pulse Ox 05/23/20 10:15 67 15 133/62 98 05/23/20 10:05 65 16 126/72 96 05/23/20 09:55 64 15 120/75 96 05/23/20 09:45 66 16 123/61 96 05/23/20 09:35 68 15 124/78 100 05/23/20 09:28 36.6 C 67 16 114/59 L 98 05/23/20 06:48 36.8 C 99 H 20 141/82 H 96 Transfer of Care Handoff Completed per policy Notes Mental Status: alert / awake / arousable Patient Amnestic to Procedure: Yes Nausea / Vomiting: adequately controlled Pain: adequately controlled Airway Patency, RR, SpO2: stable & adequate BP & HR: stable & adequate Hydration State: stable & adequate Anesthetic Complications: no major complications apparent
[2020-05-23] MEDS ORDERED: DOCUSATE SODIUM 100 MG CAP PO SCH (12:00)
[2020-05-23 15:32] LABS: Hematocrit (blood only) 41.4 % (37-47); Hemoglobin 13.1 g/dL (12.0-16.0)
--- NOTE | 2020-05-24 10:54 | Discharge Summary ---
Date of Service May 24, 2020 Discharge Data Procedures Performed Operation Date: 05/23/20 07:30 Actual Procedures p Robotic Total Laparoscopic Hysterectomy, Bilateral Salpingectomy, - Cookie Patterson MD s Cystoscopy - Cookie Patterson MD Hospital Course (1) Menorrhagia: The patient was admitted for planned Robotic TLH/Salpingectomy/Cysto, and underwent the procedure without complication; see op report for details. She was then admitted to [facility] for postop observation. She met all milestones including ambulation, tolerating PO diet, voiding, and having well-controlled postop pain. She expressed readiness for discharge home and was allowed to leave on POD#0. Planned follow up in the office at 2 and 6 weeks per usual. Coding Level of Care Code 423[address] [facility] Care - Discharge Diagnoses Menorrhagia N92.0
== END 2020-05-23 17:15 | disposition home or self-care (01) ==
LOC: ASU 05:46 → 4N 05:46